=== PATIENT | female | born 1985 | race Caucasian/White ===

== ENCOUNTER 2017-05-31 22:31 | Emergency (ER) | payer OTHER ==
[~2017-05-31] VITALS: Ht 154.9 cm; Wt 56.7 kg
[2017-05-31] MEDS ORDERED: NAPROSYN500 MG PO (23:55)
[2017-06-01] VITALS: BP 96/47
== END 2017-06-01 | disposition home or self-care (01) ==
LOC: M.ERS 22:31
DX: S20.212A Contusion of left front wall of thorax, initial encounter (principal); F17.200 Nicotine dependence, unspecified, uncomplicated; Y04.0XXA Assault by unarmed brawl or fight, initial encounter; Y93.89 Activity, other specified; Y92.89 Other specified places as the place of occurrence of the external cause; Y99.8 Other external cause status